=== PATIENT | female | born 1965 | race Caucasian/White ===

== ENCOUNTER → 2025-05-29 10:07 | Outpatient (REF) | payer OTHER, SELFPAY ==
[2025-05-29 11:30] LABS: Hematocrit 38.3 % (37.0-47.0); Hemoglobin 13.0 g/dL (12.0-16.0); Mean Corp Hgb Conc. 33.9 g/dL (33.0-37.0); Mean Corpuscular Volume 90.5 fL (81.0-99.0); Nucleated Red Blood Cells % 0 %; Platelet Count 382 10^3/uL (130-400); Red Cell Dist. Width 11.9 % (11.5-14.5)
[2025-05-29 11:47] LABS: Blood Urea Nitrogen 17 mg/dl (7-17); Calcium 10.0 mg/dl (8.4-10.2); Carbon Dioxide 28 mmol/L (22-30); Chloride 104 mmol/L (98-107); Glucose 93 mg/dl (70-99); HDL Cholesterol 50 mg/dl; LDL Cholesterol, Calculated 63 mg/dl; Magnesium 2.0 mg/dl (1.6-2.3); Potassium 4.6 mmol/L (3.5-5.1); Sodium 136 mmol/L (135-145); Very Low Density Lipoprotein 12 mg/dl (0-30); eGFR > 60.00
[2025-05-29 12:26] LABS: Vitamin D, 25-OH*** 37.7 ng/mL (30-80)
[2025-05-29 12:40] LABS: Glycohemoglobin (HgbA1c) 6.0 % (4.0-5.9)
[2025-05-29 12:47] LABS: TSH 3.18 uIU/ml (0.47-4.68)
[2025-05-29 13:00] LABS: Vitamin B12 > 1000 pg/ml (239-931)
== END ==
LOC: OLABSOL 10:07
PROVIDERS: ATTENDING PHYSICIAN Nurse Practitioner Adult Health
DX: E55.9 Vitamin D deficiency, unspecified (principal); Z13.220 Encounter for screening for lipoid disorders; R73.09 Other abnormal glucose; D51.9 Vitamin B12 deficiency anemia, unspecified; R79.89 Other specified abnormal findings of blood chemistry; D64.9 Anemia, unspecified; G70.00 Myasthenia gravis without (acute) exacerbation
CPT/HCPCS: 36415; 80048; 80061; 82306; 82607; 83036; 83735; 84439; 84443; 85025